=== PATIENT | female | born 1980 | race Asian ===

== ENCOUNTER 2016-07-15 15:10 | Emergency (ER) | payer OTHER ==
[2016-07-15 15:11] VITALS: BP 113/62; PULSE 76; RESP 14; TEMP 98.6; O2SAT 100
--- NOTE | 2016-07-15 15:39 | PD ---
Physical Exam Time Seen by Provider: 15:39 Narrative 36 y/o female here for clearance to start employment. Moved here from [facility] 40 days ago. Requesting testing for TB. Vital signs reviewed. Seen at triage desk. Awaiting bed placement. Data Data Last Documented VS Vital Signs Date Time Temp Pulse Resp B/P Pulse Ox O2 Delivery O2 Flow Rate FiO2 07/15/16 15:11 98.6 76 14 113/62 100 MDM Medical Record Reviewed: Yes Supervised Visit with LISA: Kaushik Tijerina Jul 15, 2016 15:39
--- NOTE | 2016-07-15 15:50 | PD ---
HPI Chief Complaint: Medical Clearance Time Seen by Provider: 15:47 Travel History International Travel<30 days: No Contact w/Intl Traveler<30days: No Traveled to known affect area: No History of Present Illness HPI 36-year-old female from the [facility] who just moved here with her is here requesting a chest x-ray for TB clearance and let her for appointment. He has no emergent issue otherwise. Patient is here and said he went to the health department as referred to either in urgent care, primary care, or the ED. Patient has no known drug allergies. PFSH Social History Alcohol Use: No Tobacco Use: No Substance Use: No Allergies-Medications (Allergen,Severity, Reaction): Coded Allergies: No Known Allergies (Unverified , 07/15/16) Review of Systems Except as stated in HPI: all other systems reviewed are Neg General / Constitutional: No: Fever Eyes: No: Visual changes HENT: No: Headaches Cardiovascular: No: Chest Pain or Discomfort Respiratory: No: Shortness of Breath Gastrointestinal: No: Abdominal Pain Genitourinary: No: Dysuria Musculoskeletal: No: Pain Skin: No Rash Neurologic: No: Weakness Psychiatric: No: Depression Endocrine: No: Polydipsia Hematologic/Lymphatic: No: Easy Bruising Physical Exam Narrative GENERAL: Patient is in no acute distress. SKIN: Warm and dry. HEAD: Atraumatic. Normocephalic. EYES: Pupils equal and round. No scleral icterus. No injection or drainage. ENT: No nasal bleeding or discharge. Mucous membranes pink and moist. NECK: Trachea midline. Supple. CARDIOVASCULAR: Regular rate and rhythm. RESPIRATORY: No accessory muscle use. MUSCULOSKELETAL: Extremities without clubbing, cyanosis, or edema. No obvious deformities. NEUROLOGICAL: Awake and alert. No obvious cranial nerve deficits. Motor grossly within normal limits. Five out of 5 muscle strength in the arms and legs. Normal speech. PSYCHIATRIC: Appropriate mood and affect; insight and judgment normal. Data Data Last Documented VS Vital Signs Date Time Temp Pulse Resp B/P Pulse Ox O2 Delivery O2 Flow Rate FiO2 07/15/16 15:11 98.6 76 14 113/62 100 MDM Medical Decision Making Medical Screen Exam Complete: Yes Emergency Medical Condition: No Differential Diagnosis Request for medical clearance. TB clearance. We'll her for employment. Narrative Course A medical screening exam was performed: At the time of evaluation the presenting medical condition was determined not to be of an emergent nature. The patient was given the option of receiving additional care, but declined. Patient was given options for additional community resources from which to obtain care. The Patient Has Been advised to seek medical attention for their presenting complaint. The patient has been advised to return to the ER at any time if an emergent condition develops. Condition: Stable David Wellington Jul 15, 2016 15:50
== END 2016-07-15 16:01 | disposition left against medical advice (07) ==
LOC: NEPK 15:10
DX: Z02.1 Encounter for pre-employment examination (principal)
CPT/HCPCS: 99281

== ENCOUNTER 2016-10-14 11:37 | Emergency (ER) | payer OTHER ==
[~2016-10-14] VITALS: Ht 149.9 cm; Wt 60.0 kg
[2016-10-14 11:39] VITALS: BP 109/69; PULSE 70; RESP 18; TEMP 98.5
[2016-10-14 12:47] LABS: AUTOMATED NEUTROPHIL # 2.4 TH/MM3 (1.8-7.7); BASOPHIL % 0.7 % (0.0-2.0); EOSINOPHIL # 0.2 TH/MM3 (0-0.4); EOSINOPHIL % 3.4 % (0.0-4.0); HEMATOCRIT 41.1 % (35.0-46.0); HEMO FLAGS DIFF FINAL; LYMPH % 43.5 % (9.0-44.0); LYMPHOCYTE # 2.2 TH/MM3 (1.0-4.8); MEAN CORPUSCULAR HEMOGLOBIN 32.1 PG (27.0-34.0); MEAN CORPUSCULAR HGB CONC 34.5 % (32.0-36.0); MONO % 5.4 % (0.0-8.0); PLATELET COUNT 260 TH/MM3 (150-450); RED BLOOD COUNT 4.42 MIL/MM3 (4.00-5.30); RED CELL DISTRIBUTION WIDTH 12.1 % (11.6-17.2)
[2016-10-14 12:58] LABS: ANION GAP 8 MEQ/L (5-15); BICARBONATE 28.6 MEQ/L (21.0-32.0); BLOOD UREA NITROGEN 6 MG/DL (7-18); CHLORIDE 102 MEQ/L (98-107); GLOMERULAR FILTRATION RATE 100 ML/MIN (>89); POTASSIUM 3.5 MEQ/L (3.5-5.1); SODIUM (NA) 139 MEQ/L (136-145)
[2016-10-14 13:05] LABS: CREATINE KINASE 67 U/L (26-192)
[2016-10-14 13:54] VITALS: BP 110/60; PULSE 59; RESP 21; O2SAT 100
[2016-10-14] MEDS ORDERED: NAPR500T PO (13:56)
--- NOTE | 2016-10-14 13:56 | PD ---
HPI Chief Complaint: Pain: Acute or Chronic Time Seen by Provider: 13:33 Travel History International Travel<30 days: No Contact w/Intl Traveler<30days: No Traveled to known affect area: No History of Present Illness HPI This is a 36-year-old female who presents to the emergency department with left- sided chest pain that's worse when she takes a deep breath right adjacent to her sternum, moderate severity, nonradiating associated with some shortness of breath. She says she's had this pain before when she used to live in the [facility] but she never got it checked out. She denies any recent travel. She is not on oral contraceptive pills and has had no recent surgery. Her pain has been constant for 2 days. She denies hypertension, hyperlipidemia, diabetes or smoking. She doesn't use any drugs and denies any family history of heart disease. PFSH Past Medical History ?: Not LMP: 10/02/16 Social History Alcohol Use: No Tobacco Use: No Substance Use: No Allergies-Medications (Allergen,Severity, Reaction): Coded Allergies: No Known Allergies (Unverified , 07/15/16) Reported Meds & Prescriptions Reported Meds & Active Scripts Active Naproxen 500 Mg Tab 500 Mg PO BID PRN Review of Systems Except as stated in HPI: all other systems reviewed are Neg Physical Exam Narrative GENERAL:Well appearing, no acute distress SKIN: Focused skin assessment warm and dry. HEAD: Atraumatic. Normocephalic. EYES: Pupils equal and round. No injection or drainage. ENT: Moist mucous membranes NECK: Trachea midline. CARDIOVASCULAR: Regular rate and rhythm. No murmur appreciated. RESPIRATORY: Clear to auscultation. Breath sounds equal bilaterally. GASTROINTESTINAL: Abdomen soft, non-tender, nondistended. MUSCULOSKELETAL: No obvious deformities. NEUROLOGICAL: Awake and alert. No obvious cranial nerve deficits. Moving all extremities. PSYCHIATRIC: Appropriate mood and affect; insight and judgment normal. Data Data Last Documented VS Vital Signs Date Time Temp Pulse Resp B/P (MAP) Pulse Ox O2 Delivery O2 Flow Rate FiO2 10/14/16 13:54 100 Room Air 10/14/16 13:54 21 10/14/16 13:54 59 10/14/16 11:39 98.5 Orders Orders Electrocardiogram (10/14/16 12:14) Complete Blood Count With Diff (10/14/16 12:14) Basic Metabolic Panel (Bmp) (10/14/16 12:14) Ckmb (Isoenzyme) Profile (10/14/16 12:14) Troponin I (10/14/16 12:14) Iv Access Insert/Monitor (10/14/16 12:14) Ecg Monitoring (10/14/16 12:14) Oxygen Administration (10/14/16 12:14) Oximetry (10/14/16 12:14) Chest, Pa & Lat (10/14/16 12:14) Labs Laboratory Tests Test 10/14/16 12:28 White Blood Count 5.0 TH/MM3 Red Blood Count 4.42 MIL/MM3 Hemoglobin 14.2 GM/DL Hematocrit 41.1 % Mean Corpuscular Volume 93.0 FL Mean Corpuscular Hemoglobin 32.1 PG Mean Corpuscular Hemoglobin Concent 34.5 % Red Cell Distribution Width 12.1 % Platelet Count 260 TH/MM3 Mean Platelet Volume 7.2 FL Neutrophils (%) (Auto) 47.0 % Lymphocytes (%) (Auto) 43.5 % Monocytes (%) (Auto) 5.4 % Eosinophils (%) (Auto) 3.4 % Basophils (%) (Auto) 0.7 % Neutrophils # (Auto) 2.4 TH/MM3 Lymphocytes # (Auto) 2.2 TH/MM3 Monocytes # (Auto) 0.3 TH/MM3 Eosinophils # (Auto) 0.2 TH/MM3 Basophils # (Auto) 0.0 TH/MM3 CBC Comment DIFF FINAL Differential Comment Blood Urea Nitrogen 6 MG/DL Creatinine 0.67 MG/DL Random Glucose 123 MG/DL Calcium Level 8.6 MG/DL Sodium Level 139 MEQ/L Potassium Level 3.5 MEQ/L Chloride Level 102 MEQ/L Carbon Dioxide Level 28.6 MEQ/L Anion Gap 8 MEQ/L Estimat Glomerular Filtration Rate 100 ML/MIN Total Creatine Kinase 67 U/L Troponin I LESS THAN 0.02 NG/ML MDM Medical Decision Making Medical Screen Exam Complete: Yes Emergency Medical Condition: Yes Interpretation(s) EKG: Normal sinus rhythm, no ST changes Afebrile, no tachycardia, 100% on RA no leukocytosis electrolytes within normal limits troponin negative Differential Diagnosis Pulmonary embolism, pleurisy, myocardial infarction, costochondritis Narrative Course This is a 36-year-old female who presents to the emergency department with pleuritic chest discomfort. EKG is nonischemic. Labs are reassuring including a normal troponin. Chest x-ray is unremarkable. Patient is PERC negative. I have a very low clinical suspicion of pulmonary embolism. I suspect she has pleurisy. She has no risk factors for coronary artery disease and her pain has been going on for more than 8 hours I think one troponin is reassuring. I think patient can safely be discharged home and can follow-up with her primary care physician and I doubt she has life-threatening etiology of chest pain. Diagnosis Primary Impression: Pleurisy Patient Instructions: General Instructions Additional Instructions: If you develop severe chest pain, shortness of breath, sweating, lightheadedness , dizziness or difficulty breathing return to the emergency department immediately. Followup with your primary care physician in 2-3 days if your symptoms are not resolved. Med/Other Pt SpecificInfo: Prescription(s) given Scripts Naproxen (Naproxen) 500 Mg Tab 500 MG PO BID Y for PAIN SCALE 4 TO 10, #10 TAB 0 Refills Prov: Heike Wilkes MD 10/14/16 Disposition: 01 DISCHARGE HOME Condition: Stable Heike Wilkes MD Oct 14, 2016 13:56
--- NOTE | 2016-10-14 14:14 | RADRPT ---
EXAM DATE/TIME: 10/14/2016 13:46 [facility] COMPARISON: CHEST PA & LAT, July 15, 2016, 17:27. INDICATIONS : Chest pain and shortness of breath. MEDICAL HISTORY : None. SURGICAL HISTORY : section. ENCOUNTER: Initial ACUITY: 3 days PAIN SCORE: 8/10 LOCATION: Bilateral chest FINDINGS: PA and lateral views of the chest demonstrate the lungs to be symmetrically aerated without evidence of mass, infiltrate or effusion. The cardiomediastinal contours are unremarkable. Osseous structure s are intact. There is elevation of the right hemidiaphragm. There has been no significant change whe n compared to the prior exam. CONCLUSION: 1. No acute cardiopulmonary disease. Gerard Cook MD on October 14, 2016 at 14:13 Board Certified Radiologist. This report was verified electronically.
--- NOTE | 2016-10-15 10:00 | EKG ---
Date Performed: 10/14/2016 Time Performed: 12:19:31 PTAGE: 36 years EKG: Sinus rhythm NORMAL ECG NO PREVIOUS TRACING DOCTOR: Damián Peña Interpretating Date/Time 10/15/2016 09:58:58
== END 2016-10-14 16:00 | disposition home or self-care (01) ==
LOC: NEPD 11:37
DX: R09.1 Pleurisy (principal)
CPT/HCPCS: 71020; 80048; 82550; 84484; 85025; 85379; 93005

== ENCOUNTER 2017-01-19 17:02 | Emergency (ER) | payer OTHER ==
[~2017-01-19] VITALS: Ht 149.9 cm; Wt 58.7 kg
[~2017-01-19 17:02] MED LIST: NAPR500T2 PO
[2017-01-19 17:11] VITALS: BP 112/68; PULSE 72; RESP 16; TEMP 98.6; O2SAT 99
[2017-01-19] MEDS ORDERED: IBUP1TAB7 PO (17:29)
[2017-01-19] MEDS ORDERED: CYCL10TA PO (17:29)
--- NOTE | 2017-01-19 17:29 | PD ---
HPI . Back pain Chief Complaint: Back/ Neck Pain or Injury Time Seen by Provider: 17:18 Travel History International Travel<30 days: No Contact w/Intl Traveler<30days: No Traveled to known affect area: No History of Present Illness HPI This patient presents with a chief complaint of back pain. It is right upper pain. It started 3 days ago. She rates it 8/10. It is exacerbated by movement. There has been no treatment prior to arrival such as over-the- counter analgesics or a heating pad. PFSH Past Medical History ?: Not LMP: 12/20/16 : 4 Para: 3 Past Surgical History Section: Yes Social History Alcohol Use: No Tobacco Use: No Substance Use: No Allergies-Medications (Allergen,Severity, Reaction): Coded Allergies: No Known Allergies (Unverified Adverse Reaction, Unknown, 01/19/17) Reported Meds & Prescriptions Reported Meds & Active Scripts Active No Active Prescriptions or Reported Medications Review of Systems Except as stated in HPI: all other systems reviewed are Neg Physical Exam Narrative GENERAL: Awake and alert and in no acute distress. SKIN: Warm and dry. HEAD: Normocephalic/atraumatic. EYES: Pupils are equal. Extraocular movements are intact. NECK: Normal range of motion. CARDIOVASCULAR: Regular rate and rhythm. RESPIRATORY: Nonlabored respirations. MUSCULOSKELETAL: Atraumatic. She has tenderness to palpation of the right trapezius muscle. NEUROLOGICAL: Nonfocal. PSYCHIATRIC: Appropriate mood and affect. Data Data Last Documented VS Vital Signs Date Time Temp Pulse Resp B/P (MAP) Pulse Ox O2 Delivery O2 Flow Rate FiO2 01/19/17 17:11 98.6 72 16 112/68 (83) 99 MDM Medical Decision Making Medical Screen Exam Complete: Yes Emergency Medical Condition: Yes Differential Diagnosis My differential diagnosis of muscle pain includes but is not limited to overuse , muscle spasm, strain Narrative Course This patient presents with atraumatic pain in the right trapezius muscle. She has tried no treatment prior to arrival. I will discharge her on ibuprofen and Flexeril. She should use a heating pad. Diagnosis Primary Impression: Trapezius muscle strain Qualified Codes: S46.811A - Strain of other muscles, fascia and tendons at shoulder and upper arm level, right arm, initial encounter Patient Instructions: General Instructions, Muscle Cramp (ED) Additional Instructions: Use a heating pad Scripts Cyclobenzaprine (Flexeril) 10 Mg Tab 10 MG PO TID for Muscle Spasm, #30 TAB 0 Refills Prov: Swati Beal MD 01/19/17 Ibuprofen (Ibuprofen) 800 Mg Tab 800 MG PO Q8H Y for Pain/Inflammation, #60 TAB 0 Refills Prov: Swati Beal MD 01/19/17 Disposition: 01 DISCHARGE HOME Condition: Stable Swati Beal MD Jan 19, 2017 17:29
== END 2017-01-19 17:46 | disposition home or self-care (01) ==
LOC: PHEFT 17:02
DX: S46.811A Strain of other muscles, fascia and tendons at shoulder and upper arm level, right arm, initial encounter (principal); X58.XXXA Exposure to other specified factors, initial encounter
CPT/HCPCS: 99283

== ENCOUNTER 2017-01-22 17:25 | Emergency (ER) | payer OTHER ==
[~2017-01-22] VITALS: Ht 149.9 cm; Wt 59.0 kg
[~2017-01-22 17:25] MED LIST changes: +CYCL10TA PO; +IBUP1TAB7 PO; -NAPR500T2 PO
[2017-01-22 17:31] VITALS: BP 119/64; PULSE 80; RESP 16; TEMP 98.4; O2SAT 99
--- NOTE | 2017-01-22 17:49 | PD ---
HPI Chief Complaint: GI Complaint Time Seen by Provider: 17:44 Travel History International Travel<30 days: No Contact w/Intl Traveler<30days: No Traveled to known affect area: No History of Present Illness HPI PATIENT DURING PAST 2 MONTHS HAS INTERMITTENTLY HAD BLACK TARRY STOOLS WELL SOME BRIGHT RED BLOOD PER RECTUM, ASSOCIATED WITH EPIGASTRIC DISCOMFORT, PATIENT STATES THAT SHE WOULD ONLY TAKE TYLENOL. BUT RECENTLY OVER PAST 3 DAYS SHE WAS DIAGNOSED WITH A TRAPEZIUS STRAIN AND PRESCRIBED FLEXERIL AND IBUPROFEN 800MG. PCP: RACHNA BROTHERS? SUZANNE DELGADO PMHX: PSHX: ALL:DENIES PFSH Past Medical History ?: Not : 4 Para: 3 Past Surgical History Section: Yes Social History Alcohol Use: No Tobacco Use: No Substance Use: No Allergies-Medications (Allergen,Severity, Reaction): Coded Allergies: No Known Allergies (Unverified Adverse Reaction, Unknown, 01/22/17) Reported Meds & Prescriptions Reported Meds & Active Scripts Active No Active Prescriptions or Reported Medications Review of Systems Except as stated in HPI: all other systems reviewed are Neg General / Constitutional: No: Fever Eyes: No: Visual changes HENT: No: Headaches Cardiovascular: No: Chest Pain or Discomfort Respiratory: No: Shortness of Breath Gastrointestinal: Positive: Other (BRBPR AND BLACK TARRY STOOL) Genitourinary: No: Dysuria Musculoskeletal: No: Pain Skin: No Rash Neurologic: No: Weakness Psychiatric: No: Depression Endocrine: No: Polydipsia Hematologic/Lymphatic: No: Easy Bruising Physical Exam Narrative GENERAL: SKIN: Warm and dry. HEAD: Atraumatic. Normocephalic. EYES: Pupils equal and round. No scleral icterus. No injection or drainage. ENT: No nasal bleeding or discharge. Mucous membranes pink and moist. NECK: Trachea midline. No JVD. CARDIOVASCULAR: Regular rate and rhythm. RESPIRATORY: No accessory muscle use. Clear to auscultation. Breath sounds equal bilaterally. GASTROINTESTINAL: Abdomen soft, non-tender, nondistended. RECTAL EXAM WITH EMILY GARIBAY AT BEDSIDE: NO HEMORRHOIDS NOTED, NO GROSS BLOOD NOTED, BUT GUAIAC POSITIVE MUSCULOSKELETAL: Extremities without clubbing, cyanosis, or edema. No obvious deformities. NEUROLOGICAL: Awake and alert. No obvious cranial nerve deficits. Motor grossly within normal limits. Five out of 5 muscle strength in the arms and legs. Normal speech. PSYCHIATRIC: Appropriate mood and affect; insight and judgment normal. Data Data Last Documented VS Vital Signs Date Time Temp Pulse Resp B/P (MAP) Pulse Ox O2 Delivery O2 Flow Rate FiO2 01/22/17 18:23 68 18 115/68 (84) 100 Room Air 01/22/17 17:31 98.4 Orders Orders Complete Blood Count With Diff (01/22/17 17:50) Comprehensive Metabolic Panel (01/22/17 17:50) Lipase (01/22/17 17:50) Prothrombin Time / Inr (Pt) (01/22/17 17:50) Act Partial Throm Time (Ptt) (01/22/17 17:50) Alcohol (Ethanol) (01/22/17 17:50) Urinalysis - C+S If Indicated (01/22/17 17:50) Abdomen, Flat & Upright (01/22/17 17:50) Ecg Monitoring (01/22/17 17:50) Iv Access Insert/Monitor (01/22/17 17:50) Oximetry (01/22/17 17:50) Sodium Chloride 0.9% Flush (Ns Flush) (01/22/17 18:00) Ed Urine Pregnancytest Poc (01/22/17 17:50) Labs Laboratory Tests Test 01/22/17 17:50 01/22/17 18:20 White Blood Count 4.7 TH/MM3 Red Blood Count 4.25 MIL/MM3 Hemoglobin 13.5 GM/DL Hematocrit 39.7 % Mean Corpuscular Volume 93.5 FL Mean Corpuscular Hemoglobin 31.7 PG Mean Corpuscular Hemoglobin Concent 34.0 % Red Cell Distribution Width 11.3 % Platelet Count 274 TH/MM3 Mean Platelet Volume 7.1 FL Neutrophils (%) (Auto) 44.6 % Lymphocytes (%) (Auto) 44.9 % Monocytes (%) (Auto) 7.0 % Eosinophils (%) (Auto) 2.9 % Basophils (%) (Auto) 0.6 % Neutrophils # (Auto) 2.1 TH/MM3 Lymphocytes # (Auto) 2.2 TH/MM3 Monocytes # (Auto) 0.3 TH/MM3 Eosinophils # (Auto) 0.1 TH/MM3 Basophils # (Auto) 0.0 TH/MM3 CBC Comment DIFF FINAL Differential Comment Prothrombin Time 10.4 SEC Prothromb Time International Ratio 1.0 RATIO Activated Partial Thromboplast Time 25.3 SEC Blood Urea Nitrogen 7 MG/DL Creatinine 0.78 MG/DL Random Glucose 127 MG/DL Total Protein 7.6 GM/DL Albumin 3.6 GM/DL Calcium Level 8.4 MG/DL Alkaline Phosphatase 67 U/L Aspartate Amino Transf (AST/SGOT) 32 U/L Alanine Aminotransferase (ALT/SGPT) 49 U/L Total Bilirubin 0.7 MG/DL Sodium Level 139 MEQ/L Potassium Level 3.5 MEQ/L Chloride Level 103 MEQ/L Carbon Dioxide Level 28.6 MEQ/L Anion Gap 7 MEQ/L Estimat Glomerular Filtration Rate 84 ML/MIN Lipase 172 U/L Ethyl Alcohol Level LESS THAN 3 MG/DL Urine Color YELLOW Urine Turbidity CLEAR Urine pH 7.0 Urine Specific [place] 1.006 Urine Protein NEG mg/dL Urine Glucose (UA) NEG mg/dL Urine Ketones NEG mg/dL Urine Occult Blood NEG Urine Nitrite NEG Urine Bilirubin NEG Urine Leukocyte Esterase NEG Urine WBC 0-2 /hpf Urine Squamous Epithelial Cells 0-5 /hpf Microscopic Urinalysis Comment CULT NOT INDICATED MDM Medical Decision Making Medical Screen Exam Complete: Yes Emergency Medical Condition: Yes Medical Record Reviewed: Yes Differential Diagnosis HEMORRHOID V GI BLEED V GASTRITIS V PEPTIC ULCER DISEASE V PANCREATITIS V ANEMIA Narrative Course HD STABLE, H/H STABLE, UA NL , CMP NL, CBC NL WELL. ABD SERIES NEG FOR AIR FLUID LEVELS/ OR ILEUS/SBO Diagnosis Primary Impression: MILD GI BLEED (HEMODYNAMICALLY STABLE, HEMOGLOBIN NORMAL) Referrals: Yancy Titus MD TO SETUP OUTPATIENT ENDOSCOPY/COLONOSCOPY FOR FURTHER EVALUATION BLOOD IN YOUR STOOL Scripts No Active Prescriptions or Reported Meds Disposition: DISCHARGE HOME Condition: Stable Luan Hutchison MD Jan 22, 2017 17:49
[2017-01-22] MEDS ORDERED: SODIUM CHLORIDE 0.9% FLUSH 10 ML FLUSH IVF PRN (18:00)
[2017-01-22 18:06] LABS: AUTOMATED NEUTROPHIL # 2.1 TH/MM3 (1.8-7.7); BASOPHIL % 0.6 % (0.0-2.0); EOSINOPHIL # 0.1 TH/MM3 (0-0.4); EOSINOPHIL % 2.9 % (0.0-4.0); HEMATOCRIT 39.7 % (35.0-46.0); HEMOGLOBIN 13.5 GM/DL (11.6-15.3); LYMPH % 44.9 % (9.0-44.0); LYMPHOCYTE # 2.2 TH/MM3 (1.0-4.8); MEAN CELL VOLUME 93.5 FL (80.0-100.0); MEAN CORPUSCULAR HEMOGLOBIN 31.7 PG (27.0-34.0); MEAN PLATELET VOLUME 7.1 FL (7.0-11.0); MONOCYTE # 0.3 TH/MM3 (0-0.9); NEUT % 44.6 % (16.0-70.0); PLATELET COUNT 274 TH/MM3 (150-450); RED BLOOD COUNT 4.25 MIL/MM3 (4.00-5.30); RED CELL DISTRIBUTION WIDTH 11.3 % (11.6-17.2); WHITE BLOOD COUNT 4.7 TH/MM3 (4.0-11.0)
[2017-01-22 18:13] LABS: CHLORIDE 103 MEQ/L (98-107); SODIUM (NA) 139 MEQ/L (136-145)
[2017-01-22 18:16] LABS: CALCIUM 8.4 MG/DL (8.5-10.1)
[2017-01-22 18:17] LABS: ALBUMIN 3.6 GM/DL (3.4-5.0); BICARBONATE 28.6 MEQ/L (21.0-32.0); BLOOD UREA NITROGEN 7 MG/DL (7-18); GLUCOSE,RANDOM 127 MG/DL (74-106); LIPASE 172 U/L (73-393)
[2017-01-22 18:19] LABS: PROTHROMBIN TIME - PATIENT 10.4 SEC (9.8-11.6)
[2017-01-22 18:20] LABS: ALT (GPT) 49 U/L (10-53); AST (GOT) 32 U/L (15-37); CREATININE 0.78 MG/DL (0.50-1.00); GLOMERULAR FILTRATION RATE 84 ML/MIN (>89)
[2017-01-22 18:21] LABS: TOTAL BILIRUBIN ADULT 0.7 MG/DL (0.2-1.0); TOTAL PROTEIN 7.6 GM/DL (6.4-8.2)
[2017-01-22 18:23] VITALS: BP 115/68; PULSE 68; RESP 18; O2SAT 100
[2017-01-22 18:23] LABS: ALKALINE PHOSPHATASE 67 U/L (45-117)
--- NOTE | 2017-01-22 18:27 | RADRPT ---
EXAM DATE/TIME: 01/22/2017 18:02 [facility] COMPARISON: No previous studies available for comparison. INDICATIONS : Epigastric pain and rectal bleeding. MEDICAL HISTORY : None. SURGICAL HISTORY : section. ENCOUNTER: Initial ACUITY: 2 months PAIN SCORE: 4/10 LOCATION: Bilateral abdomen, epigastric. FINDINGS: Supine and upright views of the abdomen were performed. The abdominal bowel gas pattern is normal. No air fluid levels are seen. No abnormal masses, calcifications, or organomegaly is seen. The visu alized lower lungs are clear. No evidence of free intraperitoneal gas. The osseous structures are u nremarkable. CONCLUSION: No acute disease. Sekou Thornton MD on January 22, 2017 at 18:25 Board Certified Radiologist. This report was verified electronically.
[2017-01-22 18:29] LABS: BILIRUBIN, URINE NEG (NEG); BLOOD, URINE NEG (NEG); GLUCOSE,URINE NEG (NEG); KETONE, URINE NEG (NEG); NITRITE,URINE NEG (NEG); URINE LEUKOCYTE ESTERASE NEG (NEG)
[2017-01-22 18:57] LABS: URINE COLOR YELLOW (YELLW/STRAW)
[2017-01-22 18:58] LABS: WBC, URINE 0-2 /hpf (0-5)
[2017-01-22 18:59] LABS: SQUAMOUS EPITHELIAL CELL URINE 0-5 /hpf (0-5)
[2017-01-22 19:23] VITALS: BP 127/71
== END 2017-01-22 19:25 | disposition home or self-care (01) ==
LOC: PHED 17:25
DX: K92.2 Gastrointestinal hemorrhage, unspecified (principal)
CPT/HCPCS: 74020; 80053; 80307; 81001; 83690; 84703; 85025; 85610; 85730; 99284